=== PATIENT | male | born 1980 | race African-American/Black ===

== ENCOUNTER 2017-02-23 01:31 | Emergency (ER) | payer OTHER ==
[2017-02-23 01:59] VITALS: BP 139/69; PULSE 87; TEMP 98.2; BMI 48.2
[2017-02-23] MEDS ORDERED: ASPIRIN 81 MG CHEWABLE TABLETS PO ONE (02:08)
--- NOTE | 2017-02-23 02:08 | PDOC ---
History of Present Illness - General History Source: Patient Exam Limitations: No Limitations - History of Present Illness Initial Comments: 02/23/17 02:34 The patient is a 36 year old male with significant past medical history of hypertension and diabetes who presents to the ED for left sternal border chest pain prior to arrival. Patient reports his pain is 10/10 and nonradiating. States he has had intermittent chest pain for the past several days that has worsened prior to arrival. Patient follows up with Dr. Salinas and has been given a consultation to be seen by Dr. Chirinos. Denies lightheadedness, diaphoresis , palpitations, SOB, jaw pain, shoulder pain, arm pain, leg swelling, nausea, or vomiting. At time of evaluation, patient states he has no chest pain. Admits to being compliant with his medications. The patient denies fever, chills, cough, abdominal pain, and diarrhea. Allergies: NKDA Social History: No alcohol, tobacco, or drug use reported. Past Surgical History: umbilical hernia repair PCP: Dr. Kyra Salinas <Luna Burns - Last Filed: 02/23/17 02:57> - General History Source: Patient <GarrickAleahRan - Last Filed: 02/23/17 05:00> - General Chief Complaint: Chest Pain Stated Complaint: CHEST PAIN Time Seen by Provider: 02/23/17 02:04 Past History <Luna Burns - Last Filed: 02/23/17 02:57> - Past Medical History Cardiac Disorders: Yes Diabetes: Yes HTN: Yes - Surgical History Abdominal Surgery: Yes (umbilical hernia SX) - Immunization History Td Vaccination: Yes Immunization Up to Date: Yes - Psycho/Social/Smoking Cessation Hx Anxiety: No Suicidal Ideation: No Smoking Status: No Smoking History: Never smoked Have you smoked in the past 12 months: No Number of Cigarettes Smoked Daily: 0 Information on smoking cessation initiated: No Hx Alcohol Use: No Drug/Substance Use Hx: No Substance Use Type: None <Ran Magallanes - Last Filed: 02/23/17 05:00> - Past Medical History Allergies/Adverse Reactions: Allergies Allergy/AdvReac Type Severity Reaction Status Date / Time No Known Allergies Allergy Verified 02/23/17 01:56 Home Medications: Ambulatory Orders Furosemide [Lasix -] 20 mg PO DAILY 08/10/14 Linagliptin [Tradjenta] 5 mg PO DAILY 08/10/14 Metformin HCl [Glucophage] 1,000 mg PO BID 08/10/14 Olmesartan Medoxomil [Benicar -] 5 mg PO DAILY 08/10/14 Levofloxacin [Levaquin -] 500 mg PO DAILY #10 tablet 09/26/14 Naproxen [Naprosyn -] 500 mg PO BID PRN #14 tablet 04/13/15 Ibuprofen 800 mg PO TID #30 tablet 09/03/16 Methocarbamol [Robaxin -] 1,000 mg PO TID #30 tablet 09/03/16 Review of Systems - Review of Systems Able to Perform ROS?: Yes Comments:: 02/23/17 02:34 CONSTITUTIONAL: Absent: fever, no chills, no fatigue EYES: Absent: visual changes ENT: Absent: ear pain, no sore throat CARDIOVASCULAR: +left sternal border chest pain Absent: no palpitations RESPIRATORY: Absent: cough, no SOB GI: Absent: abdominal pain, no nausea, no vomiting, no constipation, no diarrhea GENITOURINARY: Absent: dysuria, no frequency, no hematuria MUSCULOSKELETAL: Absent: back pain, no arthralgia, no myalgia SKIN: Absent: rash NEURO: Absent: headache <Luna Burns - Last Filed: 02/23/17 02:57> *Physical Exam - Vital Signs Last Vital Signs Temp Pulse Resp BP Pulse Ox 98.2 F 87 14 139/69 97 02/23/17 01:56 02/23/17 01:56 02/23/17 01:56 02/23/17 01:56 02/23/17 01:56 - Physical Exam Comments: 02/23/17 02:34 GENERAL: Well-appearing, well-nourished. No apparent distress. HEENT: Normocephalic, atraumatic. PERRL, EOM intact. CARDIOVASCULAR: Normal S1, S2. Regular rate and rhythm. PULMONARY: Clear to auscultation bilaterally. ABDOMEN: Soft, non-distended, non-tender. EXTREMITIES: Normal ROM in all four extremities. No gross deformities. SKIN: Warm, dry. No rash NEUROLOGICAL: No focal neurological deficits. <Luna Burns - Last Filed: 02/23/17 02:57> - Vital Signs Last Vital Signs Temp Pulse Resp BP Pulse Ox 98.2 F 87 14 139/69 97 02/23/17 01:56 02/23/17 01:56 02/23/17 01:56 02/23/17 01:56 02/23/17 01:56 <Ran Magallanes - Last Filed: 02/23/17 05:00> Heart Score/ECG Review - ECG Impressions Comment:: 02/23/17 02:58 NSR @88bpm Normal ECG <Luna Burns - Last Filed: 02/23/17 02:57> ED Treatment Course - LABORATORY CBC & Chemistry Diagram: 02/23/17 03:35 02/23/17 03:35 <Ran Magallanes - Last Filed: 02/23/17 05:00> Medical Decision Making - Medical Decision Making 02/23/17 04:58 Dr. Magallanes: The scribe's documentation has been prepared under my direction and personally reviewed by me in its entirery. I confirm that the note above accurately reflects all work, treatment, procedures, and medical decision making performed by me. Pt labs are stable. Pt is chest pain free at this time. Will discharge. Pt to follow up with cardiology referral he has been given to Dr. Chirinos <Ran Magallanes - Last Filed: 02/23/17 05:00> *DC/Admit/Observation/Transfer - Attestations Scribe Attestion: 02/23/17 02:35 Documentation prepared by Luna Burns, acting as bilingual medical assistant for Ran Magallanes MD/. <Luna Burns - Last Filed: 02/23/17 02:57> - Discharge Dispostion Admit: No <Ran Magallanes - Last Filed: 02/23/17 05:00> Diagnosis at time of Disposition: Chest pain Qualifiers: Chest pain type: other chest pain Qualified Code(s): R07.89 - Other chest pain ; R07.8 - Other chest pain - Discharge Dispostion Disposition: HOME - Referrals Referrals: Alvarez Gonzalez MD [Primary Care Provider] - Marlon Ponce MD [Staff Physician] - Kyra Salinas MD [Staff Physician] - - Patient Instructions Printed Discharge Instructions: DI for Chest Pain Additional Instructions: take all your current medications as usual. Follow up with the cardiology referral you were given. Return if symptoms get worse.
[2017-02-23] MEDS ORDERED: ASPIRIN 81 MG CHEWABLE TABLETS ONE (03:17)
[2017-02-23 03:46] LABS: BASOPHIL 1.5 % (0-2.0); EOSINOPHIL 1.2 % (0-4.5); MCH 29.7 pg (25.7-33.7); MCHC 34.3 g/dl (32.0-35.9); MEAN CELL VOLUME 86.4 fl (80-96); MEAN PLT VOLUME 8.4 fl (7.5-11.1); NEUTROPHILS 44.9 % (42.8-82.8); PLATELET COUNT 290 K/MM3 (134-434); RDW 13.8 % (11.9-15.9); WHITE BLOOD COUNT 8.3 K/mm3 (4.0-10.0)
[2017-02-23 04:01] LABS: INR 1.06 (0.82-1.09); PROTHROMBIN TIME (PATIENT) 11.7 SEC (9.98-11.88)
[2017-02-23 04:17] LABS: ANION GAP 12 (8-16); BILIRUBIN,TOTAL 0.4 mg/dL (0.2-1.0); CALCIUM 9.1 mg/dL (8.5-10.1); CO2 25 mmol/L (21-32); COCKROFT - GAULT 219.64; CREATININE 1.1 mg/dL (0.7-1.3); GLUCOSE,RANDOM 224 mg/dL (74-106); MAGNESIUM 1.8 mg/dL (1.8-2.4); SGOT/AST 21 U/L (15-37); SGPT/ALT 33 U/L (12-78); TOT PROT 7.1 g/dl (6.4-8.2)
[2017-02-23 04:20] LABS: ALK PHOS 64 U/L (45-117); TROPONIN I < 0.02 ng/ml (0.00-0.05)
--- NOTE | 2017-02-23 10:50 | EKG ---
Test Reason : Blood Pressure : / mmHG Vent. Rate : 088 BPM Atrial Rate : 088 BPM P-R Int : 164 ms QRS Dur : 084 ms QT Int : 362 ms P-R-T Axes : 054 -10 015 degrees QTc Int : 438 ms NORMAL SINUS RHYTHM NORMAL ECG WHEN COMPARED WITH ECG OF 04-FEB-2012 04:35, NO SIGNIFICANT CHANGE WAS FOUND Confirmed by MELISSA MISTRY MD ([id number]) on 02/23/2017 10:50:08 AM Referred By: Confirmed By:MELISSA MISTRY MD
== END 2017-02-23 05:07 | disposition home or self-care (01) ==
LOC: JER 01:31
DX: R07.89 Other chest pain (principal); I10 Essential (primary) hypertension; E11.9 Type 2 diabetes mellitus without complications; I51.9 Heart disease, unspecified
CPT/HCPCS: 36415; 71010-TC; 80053; 82550; 82553; 83735; 83880; 84484; 85025; 85610; 93005; 93010; 99282-25

== ENCOUNTER 2017-12-23 23:43 | Emergency (ER) | payer OTHER ==
--- NOTE | 2017-12-24 00:10 | PDOC ---
History of Present Illness - General Chief Complaint: Sore Throat Stated Complaint: FLU LIKE SYMPTOMS Time Seen by Provider: 12/23/17 23:55 History Source: Patient - History of Present Illness Initial Comments: 12/24/17 00:53 37-year-old Male complaining of sore throat, fever, body aches, and left sided neck swelling for 1 day. As per patient had URI symptoms for 2 weeks with cough. Patient reports feeling worse today with no signs improvement with NyQuil. Past medical hx: Hypertension, diabetes Past History - Past Medical History Allergies/Adverse Reactions: Allergies Allergy/AdvReac Type Severity Reaction Status Date / Time No Known Allergies Allergy Verified 12/24/17 00:10 Home Medications: Ambulatory Orders Furosemide [Lasix -] 20 mg PO DAILY 08/10/14 Linagliptin [Tradjenta] 5 mg PO DAILY 08/10/14 Olmesartan Medoxomil [Benicar -] 5 mg PO DAILY 08/10/14 metFORMIN HCL [Glucophage] 1,000 mg PO BID 08/10/14 Naproxen [Naprosyn -] 500 mg PO BID PRN #14 tablet 04/13/15 Ibuprofen 800 mg PO TID #30 tablet 09/03/16 Methocarbamol [Robaxin -] 1,000 mg PO TID #30 tablet 09/03/16 Amoxicillin/Potassium Clav [Augmentin 875-125 Tablet] 1 each PO BID #20 tablet 12/24/17 Ibuprofen 600 mg PO QID PRN #30 tablet 12/24/17 Cardiac Disorders: Yes Diabetes: Yes HTN: Yes - Surgical History Abdominal Surgery: Yes (umbilical hernia SX) - Immunization History Td Vaccination: Yes Immunization Up to Date: Yes - Suicide/Smoking/Psychosocial Hx Smoking Status: No Smoking History: Never smoked Have you smoked in the past 12 months: No Number of Cigarettes Smoked Daily: 0 Hx Alcohol Use: No Drug/Substance Use Hx: No Substance Use Type: None Review of Systems - Review of Systems Able to Perform ROS?: Yes Is the patient limited Divehi proficient: No Constitutional: Yes: Fever HEENTM: Yes: Nose Congestion, Throat Pain, Other (neck swelling) Respiratory: Yes: Cough Cardiac (ROS): No: Symptoms Reported, See HPI, Chest Pain, Edema, Irregular Heart Rate, Lightheadedness, Palpitations, Syncope, Chest Tightness, Other ABD/GI: No: Symptoms Reported, See HPI, Abdominal Distended, Abd. Pain w/ defecation, Blood Streaked Bowels, Constipated, Diarrhea, Difficulty Swallowing , Nausea, Poor Appetite, Poor Fluid Intake, Rectal Bleeding, Vomiting, Indigestion, Abdominal cramping, Tarry Stools, Other *Physical Exam - Vital Signs 12/24/17 01:18 Last Vital Signs Temp Pulse Resp BP Pulse Ox 102.7 F H 108 H 18 147/87 99 12/24/17 00:10 12/24/17 00:10 12/24/17 00:10 12/24/17 00:10 12/24/17 00:10 - Physical Exam General Appearance: Yes: Appropriately Dressed Respiratory/Chest: positive: Lungs Clear, Normal Breath Sounds ED Treatment Course - RADIOLOGY Chest X-Ray Result: No Infiltrates *DC/Admit/Observation/Transfer Diagnosis at time of Disposition: Strep pharyngitis - Discharge Dispostion Disposition: HOME - Prescriptions Prescriptions: Amoxicillin/Potassium Clav [Augmentin 875-125 Tablet] 1 each PO BID #20 tablet Ibuprofen 600 mg PO QID PRN #30 tablet PRN Reason: Pain - Referrals Referrals: Alvarez Gonzalez MD [Primary Care Provider] - Call tomorrow - Patient Instructions Printed Discharge Instructions: DI for Strep Throat Additional Instructions: Drink plenty of fluids Take Tylenol every 4 hours as needed for fever Take ibuprofen every 6 hours as needed for fever Take Augmentin as prescribed. And finish the entire course of antibiotics for 10 days. Gargle with warm salty water Additional Instructions: * Please call your personal physician to report your Emergency Department visit and to report your progress, if any. * If there is no improvement in symptoms in 2 days call your physician. * Return to the Emergency Department for any worsening symptoms. - Post Discharge Activity
[2017-12-24 00:12] VITALS: BP 147/87; BMI 46.8
[2017-12-24] MEDS ORDERED: IBUPROFEN 600 MG TABLET (FP) PO ONE ×2 (00:18→00:22)
[2017-12-24] MEDS ORDERED: AMOX TR/POT CLAV 875MG/125MG TABLETS (FP) PO ONE (00:51)
[2017-12-24] MEDS ORDERED: AMOX TR/POT CLAV 875MG/125MG TABLETS (FP) ONE (00:56)
[2017-12-24] MEDS ORDERED: ACETAMINOPHEN 325 MG TABLET (FP) PO ONE (01:54)
[2017-12-24] MEDS ORDERED: ACETAMINOPHEN 325 MG TABLET (FP) ONE (02:02)
[2017-12-24 02:15] VITALS: PULSE 99; TEMP 99.8
== END 2017-12-24 02:15 | disposition home or self-care (01) ==
LOC: JER 23:43
DX: J02.0 Streptococcal pharyngitis (principal); B95.0 Streptococcus, group A, as the cause of diseases classified elsewhere; I10 Essential (primary) hypertension; E11.9 Type 2 diabetes mellitus without complications; Z79.84 Long term (current) use of oral hypoglycemic drugs
CPT/HCPCS: 71046-TC-FY; 87070; 87077; 87430; 87804; 99282-25

== ENCOUNTER 2018-04-21 08:02 | Emergency (ER) | payer OTHER ==
[2018-04-21 08:12] VITALS: TEMP 98.8; BMI 51.3
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
[2018-04-21] MEDS ORDERED: CYCLOBENZAPRINE HCL 10 MG TABLET (FP) PO ONE (11:17)
[2018-04-21] MEDS ORDERED: KETOROLAC TROMETHAMINE 60 MG/2 ML VIAL IM ONE (11:17)
[2018-04-21] MEDS ORDERED: KETOROLAC TROMETHAMINE 60 MG/2 ML VIAL ONE (11:43)
[2018-04-21] MEDS ORDERED: CYCLOBENZAPRINE HCL 10 MG TABLET (FP) ONE (11:43)
[2018-04-21 12:12] VITALS: BP 109/62; PULSE 83
== END 2018-04-21 12:12 | disposition home or self-care (01) ==
LOC: JER 08:02
PROC: 3E0233Z Introduction of Anti-inflammatory into Muscle, Percutaneous Approach (ICD-10-PCS; principal; 2018-04-21)
DX: S13.4XXA Sprain of ligaments of cervical spine, initial encounter (principal); I10 Essential (primary) hypertension; E11.9 Type 2 diabetes mellitus without complications; Z79.84 Long term (current) use of oral hypoglycemic drugs; V43.52XA Car driver injured in collision with other type car in traffic accident, initial encounter; Y93.89 Activity, other specified; Y92.410 Unspecified street and highway as the place of occurrence of the external cause
CPT/HCPCS: 72125-TC; 99282-25

== ENCOUNTER 2018-09-11 22:41 | Emergency (ER) | payer OTHER ==
[2018-09-11 23:05] VITALS: BMI 46.2
[2018-09-11] MEDS ORDERED: KETOROLAC TROMETHAMINE 15 MG/ML VIAL IVPUSH ONE (23:41)
--- NOTE | 2018-09-11 23:41 | PDOC ---
History of Present Illness - General Chief Complaint: Sore Throat Stated Complaint: SORE THROAT Time Seen by Provider: 09/11/18 23:15 History Source: Patient Exam Limitations: No Limitations - History of Present Illness Initial Comments: 09/12/18 00:36 Mr. Benoit is a 37 year old male with past medical history significant for DM and HTN presents to the emergency department s/p positive strep throat on Wednesday on Augmentin since, without relief. The patient reports he was seen at Dr. Gonzalez (PCP) office on Wednesday, where he tested positive for strep, was prescribed 10 day course of Augmentin BID, which he has completed day 01/20. The patient reports being compliant with the abx without relief. The patient reports symptoms of rhinorrhea, cough with yellow sputum production, elevated temp max to 101, headache, dizziness, SOB secondary to nasal congestions. The patient reports sick contact with daughter, who tested positive for strep on , was on abx with relief. The patient reports taking abx, Motrin, drinking tea , gargling with baking soda, without relief. Denies chest pain, loss of appetite , ear pain, abdominal pain, nausea, vomiting, urinary symptoms, changes in bowel habits, wheezing, trouble breathing, teary eyes, eye discharge, difficulty moving the neck. Allergies: NKDA Surgical history: Hernia repair w/ mesh. Social history: No tobacco, alcohol or drug use reported. PCP: Dr. Gonzalez. ROS: Constitutional: +fever. No chills. HEENT: +headache, dizziness, rhinorrhea, congestion. No visual/hearing disturbances. No increased tearing, no discharge from the eyes. No ear pain. CVS: no cp or syncope. Resp: no sob. +Cough with yellow sputum production. Gastrointestinal: no abdominal pain, nausea or vomiting. Genitourinary: no urinary sx, hematuria. MUSCULOSKELETAL: +R. Sided neck pain. No joint pain and swelling. No left side neck pain. No back pain. SKIN: no redness or skin changes, no discharge, no rash. No wounds. Hematologic: no easy bruising/bleeding. HEMATOLOGIC/LYMPHATIC: No anemia, easy bruising/bleeding, or history of blood clots. NEUROLOGIC: No LOC or altered mental status. No weakness, numbness or tingling. Allergic/Immunologic: no allergies All other systems reviewed and negative, or as documented in HPI. PE: General: Well appearing, awake and alert, NAD. HEENT: NCAT, PERRL, EOMI, clear conjunctiva, anicteric, moist mucus membranes. +soft palate and tonsillar white exudates bilaterally, erythematous oropharynx. Airway patent, normal phonation. Uvula midline. No sinus tenderness, TM clear, no pinna tenderness to manipulation. no nuchal rigidity Neck: Right sided Cervical adenopathy with tenderness. neck supple, FROM; no meningeal signs Resp: CTAB, normal and even respirations, no respiratory distress CVS: RRR, no murmurs, 2+ peripheral pulses throughout, no peripheral edema Abdomen: soft, NTND, no rebound or guarding. Back: nontender, normal inspection and ROM MSK: no edema, VILLASENOR x4, ROM intact. No clubbing or cyanosis. normal bulk and tone. Extremities: no calf tenderness Neuro: alert, oriented appropriately; no focal neurologic deficits Skin: warm and well perfused, cap refill <2 sec, normal color 09/12/18 00:37 09/12/18 00:40 Past History - Past Medical History Allergies/Adverse Reactions: Allergies Allergy/AdvReac Type Severity Reaction Status Date / Time No Known Allergies Allergy Verified 09/12/18 00:19 Home Medications: Ambulatory Orders Furosemide [Lasix -] 20 mg PO DAILY 08/10/14 Linagliptin [Tradjenta] 5 mg PO DAILY 08/10/14 Olmesartan Medoxomil [Benicar -] 5 mg PO DAILY 08/10/14 metFORMIN HCL [Glucophage] 1,000 mg PO BID 08/10/14 Naproxen [Naprosyn -] 500 mg PO BID PRN #14 tablet 04/13/15 Ibuprofen 800 mg PO TID #30 tablet 09/03/16 Methocarbamol [Robaxin -] 1,000 mg PO TID #30 tablet 09/03/16 Amoxicillin/Potassium Clav [Augmentin 875-125 Tablet] 1 each PO BID #20 tablet 12/24/17 Ibuprofen 600 mg PO QID PRN #30 tablet 12/24/17 Cyclobenzaprine HCl [Flexeril -] 10 mg PO HS #10 tablet 04/21/18 Ibuprofen 800 mg PO TID #30 tablet 04/21/18 Cardiac Disorders: Yes COPD: No Diabetes: Yes HTN: Yes - Surgical History Abdominal Surgery: Yes (umbilical hernia SX) - Immunization History Td Vaccination: Yes Immunization Up to Date: Yes - Suicide/Smoking/Psychosocial Hx Smoking Status: No Smoking History: Never smoked Have you smoked in the past 12 months: No Number of Cigarettes Smoked Daily: 0 Hx Alcohol Use: No Drug/Substance Use Hx: No Substance Use Type: None *Physical Exam - Vital Signs Last Vital Signs Temp Pulse Resp BP Pulse Ox 98.4 F 104 H 20 150/94 100 09/11/18 23:00 09/11/18 23:00 09/11/18 23:00 09/11/18 23:00 09/11/18 23:00 Moderate Sedation - Procedure Monitoring Vital Signs: Procedure Monitoring Vital Signs Temperature 98.4 F 09/11/18 23:00 Pulse Rate 104 H 09/11/18 23:00 Respiratory Rate 20 09/11/18 23:00 Blood Pressure 150/94 09/11/18 23:00 O2 Sat by Pulse Oximetry (%) 100 09/11/18 23:00 Medical Decision Making - Medical Decision Making 09/12/18 00:37 hpi as documented VS no fever, nontoxic appearing. +tachy, likely from pain/known infection tolerating secretions, no trismus, airway intact. lungs clear. 2/2 known strep pharyngitis. will treat with pcn shot, one time dosing dexamethasone and toradol lesia PO intake remains well DC with PCP followup, return precautions continued supportive care, analgesia prn tyl/nsaid as needed for fever/pain. hydration. warm tea with citrus and lemon, robbi, salt water gargles pt and family aware of instructions, verbalized understanding of impression and plan. *DC/Admit/Observation/Transfer Diagnosis at time of Disposition: Strep pharyngitis - Discharge Dispostion Disposition: HOME Condition at time of disposition: Improved Decision to Admit order: No - Referrals Referrals: Alvarez Gonzalez MD [Primary Care Provider] - - Patient Instructions Printed Discharge Instructions: DI for Strep Throat Additional Instructions: you have the strep throat you received a penicillin shot that is a one time dose for the strep you also got an anti inflammatory medication and steroids, which will help with the pain and inflammation stay well hydrated salt water gargles warm tea with lemon/citrus can also soothe the throat cover your coughs, wash your hands diligently. wear mask to prevent spread of infection may take tylenol and or ibuprofen/motrin every 6 hours as needed for pain/ fevers. motrin/aleve/advil will be best for the anti inflammatory effects follow up with your primary doctor. - Post Discharge Activity Forms/Work/School Notes: Back to Work
[2018-09-11] MEDS ORDERED: PENICILLIN G BENZATHINE 1,200,000 UNIT/2 ML PFS IM ONE (23:42)
[2018-09-11] MEDS ORDERED: DEXAMETHASONE SOD PHOSPHATE 10 MG/1 ML VIAL IVPUSH ONE (23:42)
[2018-09-12] MEDS ORDERED: DEXAMETHASONE LIQUID 0.5 MG/5 ML 240 ML BULK BOTTLE PO ONE (00:16)
[2018-09-12] MEDS ORDERED: DEXAMETHASONE SOD PHOSPHATE 4 MG/1 ML VIAL ONE (00:20)
[2018-09-12] MEDS ORDERED: PENICILLIN G BENZATHINE 1,200,000 UNIT/2 ML PFS IM ONE (00:20)
[2018-09-12] MEDS ORDERED: KETOROLAC TROMETHAMINE 15 MG/ML VIAL ONE (00:20)
[2018-09-12 01:32] VITALS: BP 134/91; PULSE 100; TEMP 98.7
== END 2018-09-12 02:12 | disposition home or self-care (01) ==
LOC: JER 22:41
DX: J02.0 Streptococcal pharyngitis (principal); B95.5 Unspecified streptococcus as the cause of diseases classified elsewhere
CPT/HCPCS: 99281-25

== ENCOUNTER 2018-12-06 10:04 | Emergency (ER) | payer OTHER ==
[2018-12-06 10:15] VITALS: BP 135/88; PULSE 90; TEMP 97.5; BMI 34.8
--- NOTE | 2018-12-06 11:06 | PDOC ---
History of Present Illness - General Chief Complaint: Pain Stated Complaint: INJURY TO FINGERS Time Seen by Provider: 12/06/18 10:27 History Source: Patient Exam Limitations: Clinical Condition - History of Present Illness Initial Comments: 12/06/18 11:01 Patient with no significant past medical history present with complaint of pain and swelling to left fourth finger after injury while playing volleyball a week ago. Patient reported he had hyperextension to left fourth finger after boarded the finger with he popped back into place. Patient reports significant swelling and pain to left fourth finger. Patient also reported aching right lower back pain upon waking this morning which he describes as mild lower back pain. Denies urinary frequency, dysuria or burning with urination. Denies fever or chills. Denies nausea vomiting Timing/Duration: 1 week Past History - Past Medical History Allergies/Adverse Reactions: Allergies Allergy/AdvReac Type Severity Reaction Status Date / Time No Known Allergies Allergy Verified 09/12/18 00:19 Home Medications: Ambulatory Orders Furosemide [Lasix -] 20 mg PO DAILY 08/10/14 Linagliptin [Tradjenta] 5 mg PO DAILY 08/10/14 Olmesartan Medoxomil [Benicar -] 5 mg PO DAILY 08/10/14 metFORMIN HCL [Glucophage] 1,000 mg PO BID 08/10/14 Naproxen [Naprosyn -] 500 mg PO BID PRN #14 tablet 04/13/15 Ibuprofen 800 mg PO TID #30 tablet 09/03/16 Methocarbamol [Robaxin -] 1,000 mg PO TID #30 tablet 09/03/16 Amoxicillin/Potassium Clav [Augmentin 875-125 Tablet] 1 each PO BID #20 tablet 12/24/17 Ibuprofen 600 mg PO QID PRN #30 tablet 12/24/17 Cyclobenzaprine HCl [Flexeril -] 10 mg PO HS #10 tablet 04/21/18 Ibuprofen 800 mg PO TID #30 tablet 04/21/18 Ibuprofen 800 mg PO Q8H PRN #20 tablet 12/06/18 Methocarbamol [Robaxin -] 500 mg PO BID PRN #14 tablet 12/06/18 Cardiac Disorders: Yes COPD: No Diabetes: Yes HTN: Yes - Surgical History Abdominal Surgery: Yes (umbilical hernia SX) - Immunization History Td Vaccination: Yes Immunization Up to Date: Yes - Suicide/Smoking/Psychosocial Hx Smoking Status: No Smoking History: Never smoked Have you smoked in the past 12 months: No Number of Cigarettes Smoked Daily: 0 Hx Alcohol Use: No Drug/Substance Use Hx: No Substance Use Type: None Review of Systems - Review of Systems Able to Perform ROS?: Yes Is the patient limited Maldivian proficient: No Constitutional: No: Chills, Fever, Weakness HEENTM: No: Symptoms Reported Respiratory: No: Symptoms reported Cardiac (ROS): No: Symptoms Reported, Irregular Heart Rate ABD/GI: No: Nausea, Vomiting : No: Burning, Dysuria, Discharge, Frequency, Flank Pain, Urgency, Testicular Mass, Testicular Swelling, Testicular Pain Musculoskeletal: Yes: See HPI, Back Pain (mild right lower back pain), Joint Swelling (left 4th finger), Muscle Pain (left 4th finger), Joint Stiffness ( left 4th finger) Neurological: No: Numbness, Paresthesia, Tingling All Other Systems: Reviewed and Negative *Physical Exam - Vital Signs Last Vital Signs Temp Pulse Resp BP Pulse Ox 97.5 F L 90 20 135/88 97 12/06/18 10:06 12/06/18 10:06 12/06/18 10:06 12/06/18 10:06 12/06/18 10:06 - Physical Exam Comments: 12/06/18 11:04 GENERAL: Well developed, well nourished. Awake and alert. No acute distress. CARDIOVASCULAR: Regular rate and rhythm. No murmurs, rubs, or gallops. PULMONARY: No evidence of respiratory distress. Lungs clear to auscultation bilaterally. No wheezing, rales or rhonchi. MUSCULOSKELETAL : Moderate swelling to left fourth finger. Moderate tenderness to PIP of left fourth finger. Free range of motion of finger. Mild tenderness to right paravertebral muscle of lower lumbar spine of L4-S1. No bony deformities SKIN: Warm and dry. Normal capillary refill. No cyanosis. NEUROLOGICAL: Alert, awake, appropriate. No motor deficits in the lower extremities. Gait is normal without ataxia. PSYCHIATRIC: Cooperative. Good eye contact. Appropriate mood and affect. General Appearance: Yes: Nourished, Appropriately Dressed. No: Apparent Distress ED Treatment Course - RADIOLOGY Radiology Studies Ordered: Category Date Time Status FINGER(S) LEFT [RAD] Stat Radiology 12/06/18 10:49 Ordered HAND- LEFT [RAD] Stat Radiology 12/06/18 10:49 Ordered Medical Decision Making - Medical Decision Making 12/06/18 11:06 Patient with no significant past medical history present with complaint of pain and swelling to left fourth finger after volleyball injury week ago. Patient also reported mild right lower back pain since this morning. Exam significant for moderate swelling with moderate tenderness to PIP of the left fourth finger with mild tenderness to right long paravertebral spine. Symptoms likely back strain to lower back and left fourth finger fracture versus left fourth finger strain. X-ray of left hand and finger ordered to rule out acute fracture. 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 X-ray showed moderate soft tissue swelling of left fourth finger patient is stable for discharge on NSAIDs and muscle relaxer with hand orthopedics follow-up for reevaluation in a few days. *DC/Admit/Observation/Transfer Diagnosis at time of Disposition: Injury of left ring finger Qualifiers: Encounter type: initial encounter Qualified Code(s): S69.92XA - Unspecified injury of left wrist, hand and finger(s), initial encounter Lumbago without sciatica Qualifiers: Chronicity: acute Back pain laterality: right Qualified Code(s): M54.5 - Low back pain - Discharge Dispostion Disposition: HOME Condition at time of disposition: Stable Decision to Admit order: No - Prescriptions Prescriptions: Ibuprofen 800 mg PO Q8H PRN #20 tablet PRN Reason: pain and swelling Methocarbamol [Robaxin -] 500 mg PO BID PRN #14 tablet PRN Reason: Back Pain - Referrals Referrals: Artemio Chicas MD [Staff Physician] - - Patient Instructions Printed Discharge Instructions: Finger Sprain Additional Instructions: X-ray of finger shows no fracture or dislocation. Symptoms likely from finger sprain. Take prescribed medication as prescribed and soak left finger in Epsom salt water as needed to help with swelling. Follow-up referred had orthopedics if no improvement in 3 days. - Post Discharge Activity
== END 2018-12-06 11:48 | disposition home or self-care (01) ==
LOC: JER 10:04
DX: S69.82XA Other specified injuries of left wrist, hand and finger(s), initial encounter (principal); M54.5 Low back pain; X50.0XXA Overexertion from strenuous movement or load, initial encounter; Y93.68 Activity, volleyball (beach) (court); Y92.89 Other specified places as the place of occurrence of the external cause; Y99.8 Other external cause status
CPT/HCPCS: 73130-TC-LT-FY; 73140-TC-LT-FY; 99281-25

== ENCOUNTER 2020-06-12 18:10 | Emergency (ER) | payer OTHER ==
[2020-06-12 18:18] VITALS: BP 131/76; PULSE 82; TEMP 98.8; BMI 45.6
[2020-06-12] MEDS ORDERED: ACETAMINOPHEN 1000 MG/100 ML VIAL (NON FORMULARY) IVPB ONE (18:18)
[2020-06-12] MEDS ORDERED: SODIUM CHLORIDE 1,000 ML IV STA (18:18)
--- NOTE | 2020-06-12 18:21 | PDOC ---
Rapid Medical Evaluation Chief Complaint: Headache Time Seen by Provider: 06/12/20 18:17 Medical Evaluation: Allergies Allergy/AdvReac Type Severity Reaction Status Date / Time No Known Allergies Allergy Verified 06/12/20 18:17 Vital Signs Temp Pulse Resp BP Pulse Ox 98.8 F 82 20 131/76 98 06/12/20 18:15 06/12/20 18:15 06/12/20 18:15 06/12/20 18:15 06/12/20 18:15 06/12/20 18:18 CC: frontal headache since sat, no improvement with motrin and tylenol Exam: vss,no neuro findings Plan: labs, ivf, head ct Discharge Disposition - Diagnosis Headache - Referrals - Patient Instructions - Post Discharge Activity
[2020-06-12] MEDS ORDERED: ACETAMINOPHEN INJECTION 100 ML IVPB ONE (18:43)
[2020-06-12] MEDS ORDERED: KETOROLAC TROMETHAMINE 30 MG/1 ML VIAL IVPUSH ONE (19:03)
[2020-06-12] MEDS ORDERED: METOCLOPRAMIDE HCL INJECTION 10 MG/2 ML VIAL IVPUSH ONE (19:03)
--- NOTE | 2020-06-12 19:08 | PDOC ---
History of Present Illness - General Chief Complaint: Headache Stated Complaint: MIGRAINE HEADACHE Time Seen by Provider: 06/12/20 18:17 History Source: Patient Exam Limitations: No Limitations - History of Present Illness Initial Comments: 06/12/20 19:05 HISTORY OF PRESENT ILLNESS: 38-year-old male past medical history of hypertension, NIDDM, CHF, GERD who presents emergency department for evaluation of headache over the past 7 days. Reports the pain started in the occiput and slowly spread and now it is a global headache rated 9/10 which he describes as a throbbing sensation. Denies any blurry vision or dizziness. Patient endorses photophobia and phonophobia. Patient reports has been taking [id number] medication such as Excedrin and Advil with minimal relief of his symptoms. No recent travel or sick contacts. PAST MEDICAL HISTORY: See HPI SURGICAL HISTORY: Denies ALLERGIES: No known drug allergies REVIEW OF SYSTEMS General/Constitutional: Denies fever or chills. Denies weakness, weight change. HEENT: Denies change in vision. Denies ear pain or discharge. Denies sore throat. Cardiovascular: Denies chest pain or shortness of breath. Respiratory: Denies cough, wheezing, or hemoptysis. Gastrointestinal: Denies nausea, vomiting, diarrhea or constipation. Denies rectal bleeding. Genitourinary: Denies dysuria, frequency, or change in urination. Musculoskeletal: Denies joint or muscle swelling or pain. Denies neck or back pain. Skin and breasts: Denies rash or easy bruising. Neurologic: See HPI Psychiatric: Denies depression or anxiety. Endocrine: Denies increased thirst. Denies abnormal weight change. Hematologic/Lymphatic: Denies anemia, easy bleeding, or history of blood clots. Allergic/Immunologic: Denies hives or skin allergy. Denies latex allergy. PHYSICAL EXAM General Appearance: Well-appearing, appropriately dressed. No apparent distress, no intoxication. HEENT: EOMI, PERRLA, normal ENT inspection, normal voice, TMs normal, pharynx normal. No conjunctival pallor. No photophobia, scleral icterus. Neck: Supple. Trachea midline. No tenderness, rigidity, carotid bruit, stridor, lymphadenopathy, or thyromegaly. No meningismus. Respiratory/Chest: Lungs CTAB. No shortness of breath, chest tenderness, respiratory distress, accessory muscle use. No crackles, rales, rhonchi, stridor, wheezing, dullness Cardiovascular: RRR. S1, S2. No JVD, murmur, bradycardia, tachycardia. Integumentary: Appropriate color, dry, warm. No cyanosis, erythema, jaundice or rash Neurologic: toll line inspector II-XII intact. Fully oriented, alert. Appropriate mood/affect. Motor strength 5/5. No appreciable EOM palsy, facial droop or sensory deficit. Normal finger-nose testing. Gait is steady. Normal tandem gait. 06/12/20 20:20 Past History - Medical History Allergies/Adverse Reactions: Allergies Allergy/AdvReac Type Severity Reaction Status Date / Time No Known Allergies Allergy Verified 06/12/20 18:17 Home Medications: Ambulatory Orders Furosemide [Lasix -] 20 mg PO DAILY 08/10/14 Linagliptin [Tradjenta] 5 mg PO DAILY 08/10/14 Olmesartan Medoxomil [Benicar -] 5 mg PO DAILY 08/10/14 metFORMIN HCL [Glucophage] 1,000 mg PO BID 08/10/14 Naproxen [Naprosyn -] 500 mg PO BID PRN #14 tablet 04/13/15 Ibuprofen 800 mg PO TID #30 tablet 09/03/16 Methocarbamol [Robaxin -] 1,000 mg PO TID #30 tablet 09/03/16 Amoxicillin/Potassium Clav [Augmentin 875-125 Tablet] 1 each PO BID #20 tablet 12/24/17 Ibuprofen 600 mg PO QID PRN #30 tablet 12/24/17 Cyclobenzaprine HCl [Flexeril -] 10 mg PO HS #10 tablet 04/21/18 Ibuprofen 800 mg PO TID #30 tablet 04/21/18 Ibuprofen 800 mg PO Q8H PRN #20 tablet 12/06/18 Methocarbamol [Robaxin -] 500 mg PO BID PRN #14 tablet 12/06/18 Cardiac Disorders: Yes COPD: No Diabetes: Yes HTN: Yes - Surgical History Abdominal Surgery: Yes (umbilical hernia SX) - Immunization History Td Vaccination: Yes Immunization Up to Date: Yes - Psycho-Social/Smoking History Smoking Status: No Smoking History: Never smoked Have you smoked in the past 12 months: No Number of Cigarettes Smoked Daily: 0 Information on smoking cessation initiated: Yes - Substance Abuse Hx (Audit-C & DAST Scrn) How often the patient has a drink containing alcohol: Never Score: In Men: 4 or > Positive; In Women: 3 or > Positive: 0 Screen Result (Pos requires Nsg. Audit-10AR): Negative In the last yr the pt used illegal drug/Rx for NonMed reason: No Score: Yes response is considered Positive: 0 Screen Result (Positive result requires Nsg. DAST-10): Negative *Physical Exam - Vital Signs Last Vital Signs Temp Pulse Resp BP Pulse Ox 98.8 F 82 20 131/76 98 06/12/20 18:15 06/12/20 18:15 06/12/20 18:15 06/12/20 18:15 06/12/20 18:15 ED Treatment Course - LABORATORY CBC & Chemistry Diagram: 06/12/20 19:05 06/12/20 19:05 Medical Decision Making - Medical Decision Making 06/12/20 19:07 A/P: 39-year-old male with global headache for 7 days Neurologic exam is unremarkable Labs Normal saline 1 L IV bolus Toradol 30 mg IV Reglan 10 mg IV push Benadryl 12.5 mg IV push Tylenol 1 g IV Reassess 06/12/20 20:20 Patient reports his pain is currently 4/10 after receiving rescue medications. CBC is normal without any evidence of infection I feel is safe to discharge home with neurology follow-up. I discussed the physical exam findings, ancillary test results and final diagnoses with the patient. I answered all of the patient's questions. The patient was satisfied with the care received and felt comfortable with the discharge plan and treatment plan. The patient will call their primary care physician within 24 hours to arrange follow-up and will return to the Emergency Department with any new, persistent or worsening symptoms. Portions of this note have been documented using voice recognition software. As a result, errors may occur in the associate pastor process. Effort has been made to correct all grammatical and associate pastor error, but some may have been missed which may produce sporadic inaccurate associate pastor or nonsensical phrases. Discharge - Discharge Information Problems reviewed: Yes Clinical Impression/Diagnosis: Headache Qualifiers: Headache type: tension-type Headache chronicity pattern: acute headache Intractability: not intractable Qualified Code(s): G44.209 - Tension-type headache, unspecified, not intractable Condition: Stable Disposition: HOME - Admission No - Follow up/Referral Referrals: Alvarez Gonzalez MD [Primary Care Provider] - Charles Orellana MD [Staff Physician] - - Patient Discharge Instructions Additional Instructions: Take Tylenol or Motrin every 6 hours for the first 48 hours and then as needed for headaches. Follow binder cutter's instructions for appropriate dosage. Keep a diary of all food to eat and activities performed prior to headaches starting. Make an appointment with your primary doctor for reevaluation within the next week. Return to emergency department for worsening headache, blurry vision, dizziness, nausea, vomiting or any other concerns. Thank you very much for for choosing us to provide emergent health care needs. - Post Discharge Activity Work/Back to School Note: Back to Work
[2020-06-12] MEDS ORDERED: KETOROLAC TROMETHAMINE 30 MG/1 ML VIAL ONE (19:27)
[2020-06-12] MEDS ORDERED: METOCLOPRAMIDE HCL INJECTION 10 MG/2 ML VIAL ONE (19:27)
[2020-06-12 19:43] LABS: BASO % 0.6 % (0-2.0); EOS % 1.6 % (0-4.5); HEMATOCRIT 43.1 % (35.4-49); HEMOGLOBIN 15.2 GM/dL (11.7-16.9); LYMPH % 35.2 % (8-40); MCH 30.5 pg (25.7-33.7); MCHC 35.3 g/dl (32.0-35.9); MEAN CELL VOLUME 86.2 fl (80-96); MEAN PLT VOLUME 8.6 fl (7.5-11.1); MONO % 11.9 % (3.8-10.2); NEUT % 50.7 % (42.8-82.8); PLATELET COUNT 322 K/MM3 (134-434); RBC 4.99 M/mm3 (4.00-5.60); WHITE BLOOD COUNT 7.7 K/mm3 (4.0-10.0)
[2020-06-12 20:19] LABS: BILIRUBIN,TOTAL 0.5 mg/dL (0.2-1); BLOOD UREA NITROGEN 11.3 mg/dL (7-18); CALCIUM 9.1 mg/dL (8.5-10.1); CREATININE 0.9 mg/dL (0.55-1.3); MAGNESIUM 1.9 mg/dL (1.8-2.4); POTASSIUM 3.9 mmol/L (3.5-5.1); TOT PROT 7.4 g/dl (6.4-8.2)
== END 2020-06-12 21:00 | disposition home or self-care (01) ==
LOC: JER 18:10
PROC: 3E0333Z Introduction of Anti-inflammatory into Peripheral Vein, Percutaneous Approach (ICD-10-PCS; principal; 2020-06-12)
PROC: 3E033GC Introduction of Other Therapeutic Substance into Peripheral Vein, Percutaneous Approach (ICD-10-PCS; 2020-06-12)
PROC: 3E0337Z Introduction of Electrolytic and Water Balance Substance into Peripheral Vein, Percutaneous Approach (ICD-10-PCS; 2020-06-12)
DX: G44.209 Tension-type headache, unspecified, not intractable (principal)
CPT/HCPCS: 36415; 80053; 83735; 85025; 99284-25; J0131